=== PATIENT | female | born 1935 ===

== ENCOUNTER 2016-12-10 09:02 | Emergency (ER) | payer MEDICARE, OTHER ==
[2016-12-10 09:06] VITALS: BP 157/72; PULSE 73; RESP 16; TEMP 98.2; O2SAT 100; BMI 31.1
--- NOTE | 2016-12-10 10:29 | ED PDOC ---
Upper Extremity Pain/Injury Time Seen by Provider: 12/10/16 09:42 Chief Complaint (Nursing): Upper Extremity Problem/Injury Chief Complaint (Provider): Upper Extremity Problem/Injury History Per: Patient History/Exam Limitations: no limitations Onset/Duration Of Symptoms: Days Current Symptoms Are (Timing): Still Present Quality: "Pain" Severity: Mild Exacerbating Factor(s): Worse At Night Additional Complaint(s): Patient is a 80 year old female who presents to ED for left arm pain for 2-3 months. Evaluated by PMD, placed on different mediations without relief, only relief from injections. Patient has been to physical therapy but no Xrays have been performed. Patient is worse with shoulder movement and sleeping at night. Denies chest pain, SOB, nausea, vomiting, back pain or injury. Past Medical History Reviewed: Historical Data, Nursing Documentation, Vital Signs Vital Signs: Last Vital Signs Temp 98.2 F 12/10/16 09:05 Pulse 73 12/10/16 09:05 Resp 16 12/10/16 09:05 BP 157/72 H 12/10/16 09:05 Pulse Ox 100 12/10/16 09:05 - Medical History PMH: HTN - Surgical History Surgical History: No Surg Hx - Family History Family History: States: No Known Family Hx - Living Arrangements Living Arrangements: With Family - Social History Current smoker - smoking cessation education provided: No Alcohol: None Drugs: Denies - Home Medications Home Medications: Ambulatory Orders Medication Instructions Recorded Non-Formulary 1 ea .ROUTE DAILY #1 ea 12/01/14 Cyclobenzaprine [Cyclobenzaprine 10 mg PO TID #30 tab 12/10/16 HCl] Naproxen [Naprosyn] 500 mg PO BID PRN #20 tablet 12/10/16 - Allergies Allergies/Adverse Reactions: Allergies Allergy/AdvReac Type Severity Reaction Status Date / Time seafood Allergy Intermediate RASH Uncoded 12/10/16 09:35 Review of Systems ROS Statement: Except As Marked, All Systems Reviewed And Found Negative Constitutional: Negative for: Fever, Chills Cardiovascular: Negative for: Chest Pain, Palpitations, Light Headedness Respiratory: Negative for: Shortness of Breath Gastrointestinal: Negative for: Nausea, Vomiting Musculoskeletal: Positive for: Shoulder Pain, Arm Pain. Negative for: Neck Pain , Back Pain, Hand Pain Skin: Negative for: Rash, Bruising Neurological: Negative for: Weakness, Numbness Physical Exam - Reviewed Nursing Documentation Reviewed: Yes Vital Signs Reviewed: Yes - Physical Exam Appears: Positive for: Non-toxic, No Acute Distress Skin: Positive for: Normal Color, Warm Eye Exam: Positive for: Normal appearance Neck: Positive for: Normal, Painless ROM, Supple Cardiovascular/Chest: Positive for: Regular Rate, Rhythm. Negative for: Murmur Respiratory: Positive for: Normal Breath Sounds. Negative for: Respiratory Distress Extremity: Positive for: Normal ROM, Other (Limited ROM of left shoulder secondary to pain ) Neurologic/Psych: Positive for: Alert, Oriented. Negative for: Motor/Sensory Deficits - ECG O2 Sat by Pulse Oximetry: 100 - Radiology X-Ray: Viewed By Me X-Ray Interpretation: No Acute Disease Medical Decision Making Medical Decision Making: Time: 1000 Initial impression: Arm pain r/o fracture Initial plan: -- EKG -- Cervical Xray -- Flexeril and Toradol IM -- Shoulder Xray Scribe Attestation: Documented by Eunice Duncan acting as a scribe for Savanah Ramires MD MD Scribe Attestation: All medical record entries made by the Scribe were at my direction and personally dictated by me. I have reviewed the chart and agree that the record accurately reflects my personal performance of the history, physical exam, medical decision making, and the department course for this patient. I have also personally directed, reviewed, and agree with the discharge instructions and disposition. Disposition - Clinical Impression Clinical Impression: Shoulder pain, left - Patient ED Disposition Is Patient to be Admitted: No Doctor Will See Patient In The: Office Counseled Patient/Family Regarding: Diagnosis, Need For Followup, Rx Given - Disposition Referrals: Joseph Manuel MD [Family Provider] - Disposition: Routine/Home Disposition Time: 12:20 Condition: IMPROVED Prescriptions: Cyclobenzaprine [Cyclobenzaprine HCl] 10 mg PO TID #30 tab Naproxen [Naprosyn] 500 mg PO BID PRN #20 tablet PRN Reason: Pain, Moderate (4-7) Instructions: Shoulder Pain (ED) Forms: [employer] (Trinidadian) Print Language: URUGUAYAN - POA Present On Arrival: None
--- NOTE | 2016-12-10 14:47 | RAD ---
PROCEDURE: Radiographs of the Left Shoulder HISTORY: left shoulder pain for 2-3 months No antecedent history of trauma provided. COMPARISON: No prior. FINDINGS: BONES: Normal. No fracture. JOINTS: Preserved glenohumeral relationship, acromioclavicular degenerative change: Mild. SOFT TISSUES: Normal. OTHER FINDINGS: None. IMPRESSION: No acute findings related to/accounting for the clinical presentation.
--- NOTE | 2016-12-10 14:48 | RAD ---
PROCEDURE: Cervical Spine Radiographs. HISTORY: Pain. No history of recent/ related trauma provided COMPARISON: None. FINDINGS: BONES: Alignment maintained. No fracture. Dens Intact. DISC SPACES: Disc spaces mild disc degenerative changes C3-4, C4-5, C5-6. Uncovertebral hypertrophy at these levels. SOFT TISSUES: Normal. No prevertebral soft tissue swelling. OTHER FINDINGS: None. IMPRESSION: No acute findings related to/accounting for the clinical presentation. Multilevel degenerative changes.
--- NOTE | 2016-12-11 14:51 | CARD ---
APPROVED REPORT EKG Measurement Heart [id number] <Conclusion> Normal sinus rhythm Normal ECG
== END 2016-12-10 12:30 | disposition home or self-care (01) ==
LOC: H.ER 09:02
DX: M25.512 Pain in left shoulder (principal)
CPT/HCPCS: 72052; 73030; 93005; 96372; 99282; J1885